=== PATIENT | female | born 1945 | race Caucasian/White ===

== ENCOUNTER 2017-09-23 13:54 | Outpatient (CLI) | payer MEDICARE, OTHER ==
--- NOTE | 2017-09-23 14:48 | MMO ---
BILATERAL DIGITAL MAMMOGRAMS WITH CAD: Comparison is made with exams of 12/26/15 and 10/05/13. FINDINGS: The breast tissue is heterogeneously dense which may reduce the sensitivity of mammography. No suspi cious mass, calcification, or architectural distortion is seen. Tiny benign calcifications are noted . IMPRESSION: BI-RADS category 2 - benign findings. Return to annual mammographic screening. BIRADS 2: Benign Finding(s) Routine annual screening mammography (for women over age 40) POS: [facility]
--- NOTE | 2017-09-23 14:50 | RAD ---
PA AND LATERAL VIEWS CHEST: HISTORY: Baseline chest x-ray. FINDINGS: The heart size is normal. The aorta is tortuous. The lungs are expanded with biapical pleural thick ening. No focal areas of consolidation, pneumothorax, didier pulmonary edema, or pleural effusions ar e seen. No acute osseous abnormalities identified. IMPRESSION: No radiographic evidence of acute cardiopulmonary process. POS: [id number]
== END 2017-09-23 13:55 | disposition home or self-care (01) ==
LOC: SCSMAMMO 13:54
PROVIDERS: ATTEND Internal Medicine
DX: Z12.31 Encounter for screening mammogram for malignant neoplasm of breast (principal); I10 Essential (primary) hypertension
CPT/HCPCS: 71046; 77067

== ENCOUNTER 2023-03-11 06:49 | Outpatient (CLI) | payer MEDICARE, OTHER | END 2023-03-11 06:50 | disposition home or self-care (01) | LOC: BICULT 06:49 | PROVIDERS: ATTEND Internal Medicine | DX: K82.4 Cholesterolosis of gallbladder (principal); N28.1 Cyst of kidney, acquired | CPT/HCPCS: 76700 ==